=== PATIENT | male | born 1980 | race Caucasian/White ===

== ENCOUNTER 2020-12-04 09:15 | Emergency (ER) | payer OTHER ==
[~2020-12-04] VITALS: Ht 177.8 cm; Wt 101.9 kg
--- NOTE | 2020-12-04 09:45 | NUR ---
assumed care of pt. pt sent here from for evaluation of L flank/back pain and possible kidney stone. pt reports that he has a hx of stones, that he is having painful urination, heaturia and not relief of pain with ibuprofen [employer] pt restless of gurney. no family at bedside
[2020-12-04] MEDS ORDERED: LISI5TAB7 PO (09:50)
[2020-12-04] MEDS ORDERED: KETOROLAC 30 MG/1 ML ONE (09:55)
[2020-12-04] MEDS ORDERED: MORPHINE SULFATE 4 MG/ML, 1ML ONE ×4 (09:55→12:27)
[2020-12-04] MEDS ORDERED: ONDANSETRON 2MG/ML, 2ML ONE (09:55)
[2020-12-04] MEDS: MORPHINE SULFATE 4 MG/ML, 1ML IVPush PRN ×2 (10:00→10:48)
[2020-12-04] MEDS ORDERED: PLEASE ENTER HEIGHT AND WEIGHT MC SCH (10:00)
[2020-12-04] MEDS ORDERED: SODIUM CHLORIDE FLUSH 10ML SYR IVF ONE (10:00)
[2020-12-04] MEDS ORDERED: ONDANSETRON 2MG/ML, 2ML IVPush ONE (10:00)
[2020-12-04] MEDS ORDERED: KETOROLAC 30 MG/1 ML IVPush ONE (10:00)
--- NOTE | 2020-12-04 10:00 | NUR ---
Dr. Herrera has bene to bedside. pt to be medicated for pain. pt advised not to drive after morphine, pt states that he can call a friend for a ride
--- NOTE | 2020-12-04 10:12 | NUR ---
pt has been medicated per order. US at bedside
[2020-12-04 10:19] LABS: BASOPHILS % (AUTO) 1 % (0-1); EOSINOPHILS % (AUTO) 0 % (1-7); LYMPHOCYTES % (AUTO) 13 % (22-44); MEAN CORPUSCULAR HEMOGLOBIN 33.3 pg (27.5-34.5); MEAN CORPUSCULAR HGB CONC 35.2 g/dL (33.2-36.2); MEAN PLATELET VOLUME 8.1 fL (7.4-10.4); MONOCYTES % (AUTO) 4 % (2-9); NEUTROPHILS % (AUTO) 83 % (42-75); PLATELET COUNT 238 x10^3/uL (130-400); RED BLOOD COUNT 5.21 x10^6/uL (4.38-5.82); RED CELL DISTRIBUTION WIDTH 13.1 % (9.4-14.8)
[2020-12-04 10:21] LABS: ALBUMIN 3.8 g/dL (3.4-5.0); ANION GAP 6 mmol/L (5-15); CALCIUM 8.7 mg/dL (8.5-10.1); CHLORIDE 112 mmol/L (98-107); CREATININE 0.88 mg/dL (0.7-1.3)
[2020-12-04 10:22] LABS: MD NO
--- NOTE | 2020-12-04 10:30 | NUR ---
pt reports some pain relief after meds. US still in progress
--- NOTE | 2020-12-04 11:15 | NUR ---
pt reports some minor relief of pain after repeated morphine dose. sitting up on [place] awaiting test results
[2020-12-04] MEDS ORDERED: MORPHINE SULFATE 4 MG/ML, 1ML IVPush ONE ×2 (11:30→12:30)
[2020-12-04 11:32] LABS: MICROSCOPIC INDICATED
--- NOTE | 2020-12-04 12:19 | NUR ---
pt continues to have pain. Dr. Herrera has been to bedside. pt to be re-medicated report to [facility] for lunch
[2020-12-04 13:19] VITALS: BP 129/82
--- NOTE | 2020-12-04 13:20 | NUR ---
pt reports significant redusction of pain. has been taking PO fluids without difficulty. chart up for MD recheck
--- NOTE | 2020-12-04 13:38 | NUR ---
Dr. Herrera has been to bedside to recheck
--- NOTE | 2020-12-04 14:13 | NUR ---
this pt has been D/C by another RN
--- NOTE | 2020-12-04 14:20 | NUR ---
pt given discharge instructions and they have confirmed that they understand the instructions. Patient ambulatory with steady gait.
== END 2020-12-04 14:22 | disposition home or self-care (01) ==
LOC: ED 10:45
DX: N20.1 Calculus of ureter (principal)
CPT/HCPCS: 36415; 76770; 80048; 81001; 82040; 85025; 87086; 96374; 96375; 96376; 99285; J1885; J2270; J2405

== ENCOUNTER 2020-12-06 07:47 | Emergency (ER) | payer OTHER ==
[~2020-12-06] VITALS: Ht 177.8 cm; Wt 104.6 kg
[~2020-12-06 07:47] MED LIST: LISI5TAB7 PO
[2020-12-06] MEDS ORDERED: ONDANSETRON 2MG/ML, 2ML ONE (08:23)
[2020-12-06] MEDS ORDERED: KETOROLAC 30 MG/1 ML ONE (08:23)
--- NOTE | 2020-12-06 08:27 | NUR ---
This pt presents to the ER for continued pain on L flank. He was seen on Friday and diagnosed with kidney stone(s). Pt has history of multiple kidney stones, states "usually they give me a liter of fluid and pain meds and I pass them on my own." Pt tachy in the 90s. Pt states normal resting HR is 40-50s. Pt ambulatory to bathroom for UA, urine clear/ yellow. Pt connnected to BP, O2 monitors. Call light in reach, all needs met at this time. Denied needing Zofran.
[2020-12-06] MEDS ORDERED: KETOROLAC 30 MG/1 ML IVPush ONE ×2 (08:30→10:00)
[2020-12-06] MEDS ORDERED: SODIUM CHLORIDE 0.9% 1,000ML IV ONE (08:30)
[2020-12-06] MEDS ORDERED: ONDANSETRON 2MG/ML, 2ML IVPush ONE (08:30)
[2020-12-06 08:37] LABS: ALBUMIN 3.9 g/dL (3.4-5.0); ANION GAP 4 mmol/L (5-15); CALCIUM 8.9 mg/dL (8.5-10.1); CHLORIDE 105 mmol/L (98-107); CREATININE 1.47 mg/dL (0.7-1.3)
[2020-12-06 08:40] LABS: BASOPHILS % (AUTO) 0 % (0-1); EOSINOPHILS % (AUTO) 1 % (1-7); LYMPHOCYTES % (AUTO) 10 % (22-44); MEAN CORPUSCULAR HEMOGLOBIN 33.2 pg (27.5-34.5); MEAN CORPUSCULAR HGB CONC 34.8 g/dL (33.2-36.2); MEAN PLATELET VOLUME 8.4 fL (7.4-10.4); MONOCYTES % (AUTO) 7 % (2-9); NEUTROPHILS % (AUTO) 81 % (42-75); PLATELET COUNT 229 x10^3/uL (130-400); RED BLOOD COUNT 5.41 x10^6/uL (4.38-5.82)
[2020-12-06 08:43] LABS: MD NO
[2020-12-06 08:57] LABS: MICROSCOPIC NOT IND
[2020-12-06 10:12] VITALS: BP 120/82
--- NOTE | 2020-12-06 10:14 | NUR ---
Pt left stating pain had subsided and he did not need any more pain medication.
== END 2020-12-06 10:15 | disposition home or self-care (01) ==
LOC: ED 08:00
DX: N13.2 Hydronephrosis with renal and ureteral calculous obstruction (principal); R94.4 Abnormal results of kidney function studies
CPT/HCPCS: 36415; 74176; 80048; 81003; 82040; 85025; 96361; 96374; 99284; J1885; J7030; 99283